=== PATIENT | female | born 1965 | race African-American/Black ===

== ENCOUNTER 2022-08-07 09:13 | Emergency (ER) | payer BC ==
[2022-08-07] MEDS ORDERED: ALBUTEROL SO4 2.5/IPRATROPIUM 0.5 INH SOL 3 ML VIAL.NEB. NEB ONE ×2 (09:33→09:37)
[2022-08-07] MEDS ORDERED: ACETAMINOPHEN 325 MG TABLET (FP) PO ONE (09:33)
[2022-08-07] MEDS ORDERED: ACETAMINOPHEN 325 MG TABLET (FP) ONE (09:37)
[2022-08-07 09:40] VITALS: BP 130/78; PULSE 74; RESP 16; TEMP 98.7; BMI 24.4
== END 2022-08-07 10:22 | disposition home or self-care (01) ==
LOC: FER 09:13
PROC: 3E0F7GC Introduction of Other Therapeutic Substance into Respiratory Tract, Via Natural or Artificial Opening (ICD-10-PCS; principal; 2022-08-07)
DX: R09.81 Nasal congestion (principal); J02.9 Acute pharyngitis, unspecified
CPT/HCPCS: 0241U-QW; 71045-TC-FY; 99284-25

== ENCOUNTER 2022-09-18 12:05 | Emergency (ER) | payer BC, OTHER ==
[2022-09-18 12:17] VITALS: BP 116/80; PULSE 70; RESP 16; TEMP 98.6; BMI 24.7
== END 2022-09-18 13:12 | disposition home or self-care (01) ==
LOC: FER 12:05
DX: J20.9 Acute bronchitis, unspecified (principal)
CPT/HCPCS: 0241U-QW; 71046-TC-FY; 99284-25